=== PATIENT | female | born 1995 | race Caucasian/White ===

== ENCOUNTER 2022-10-15 17:32 | Emergency (ER) | payer SELFPAY ==
[~2022-10-15] VITALS: Ht 170.2 cm; Wt 127.3 kg
[~2022-10-15 17:32] MED LIST: ALBU8.5H4 IH; GUAI10SY2 PO; IBUP-1984 PO; PRED20TA PO
[2022-10-15 17:45] VITALS: BP 169/86
[2022-10-15] MEDS ORDERED: AMOX-102 PO (20:15)
== END 2022-10-15 20:25 | disposition home or self-care (01) ==
LOC: ER 17:32
DX: K08.89 Other specified disorders of teeth and supporting structures (principal); Z56.0 Unemployment, unspecified; Z79.2 Long term (current) use of antibiotics; Z79.899 Other long term (current) drug therapy
CPT/HCPCS: 99283

== ENCOUNTER 2023-07-25 22:07 | Emergency (ER) | payer SELFPAY ==
[~2023-07-25] VITALS: Ht 170.2 cm; Wt 118.2 kg
[2023-07-25 22:11] VITALS: TEMP 98
[2023-07-25 22:35] LABS: BASOPHILS # (AUTO) 0.1 X10'3 (0-0.2); BASOPHILS % (AUTO) 0.6 % (0-1); EOSINOPHILS # (AUTO) 0.4 X10'3 (0-0.9); EOSINOPHILS % (AUTO) 2.7 % (0-6); HEMATOCRIT 42.5 % (35.0-45.0); HEMOGLOBIN 14.3 g/dl (12.0-16.0); LYMPHOCYTES # (AUTO) 2.9 X10'3 (1.1-4.8); LYMPHOCYTES % (AUTO) 19.7 % (21-51); MEAN CORPUSCULAR HGB CONC 33.6 g/dL (33.0-36.5); MEAN CORPUSCULAR VOLUME 83.5 FL (78-98); MONOCYTES # (AUTO) 0.9 X10'3 (0-0.9); MONOCYTES % (AUTO) 6.3 % (2-12); NEUTROPHILS # (AUTO) 10.5 X10'3 (1.8-7.7); NEUTROPHILS % (AUTO) 70.7 % (42-75); PLATELET COUNT 243 X10'3 (140-440); RED BLOOD COUNT 5.09 X10'6 (4.20-5.60); RED CELL DISTRIBUTION WIDTH 13.2 % (11.5-14.5); WHITE BLOOD COUNT 14.9 X10'3 (4.5-11.0)
[2023-07-25 23:34] LABS: ALANINE AMINOTRANSFERASE 47 U/L (12-78); ALBUMIN/GLOBULIN RATIO 0.9 (1.1-1.5); ALKALINE PHOSPHATASE 77 IU/L (46-116); ANION GAP 11 (8-16); ASPARTATE AMINO TRANSFERASE 27 U/L (10-37); BILIRUBIN,TOTAL 0.3 MG/DL (0.1-1.0); BLOOD UREA NITROGEN 9 MG/DL (7-18); BUN/CREATININE RATIO 11.4 (10.0-20.0); CALCIUM 9.7 MG/DL (8.5-10.1); CHLORIDE 103 MMOL/L (99-107); CREATININE 0.79 MG/DL (0.40-0.90); GLUCOSE 125 MG/DL (70-104); POTASSIUM 3.7 MMOL/L (3.5-5.1); SODIUM 140 MMOL/L (135-145); TOTAL CARBON DIOXIDE 25.7 MMOL/L (24-32); TOTAL PROTEIN 8.4 G/DL (6.4-8.2); eCRCL 104 ML/MIN; eGFR 87 ML/MIN
[2023-07-25 23:40] LABS: PRO BRAIN NATRIURETIC PEPTIDE 60 PG/ML (0-125)
[2023-07-26] MEDS ORDERED: INHA1EAC9 INH (00:29)
[2023-07-26] MEDS ORDERED: PRED20TA PO (00:29)
[2023-07-26] MEDS ORDERED: ALBU18HF2 INH (00:29)
[2023-07-26] MEDS ORDERED: ipratropium/albuterol 3ml nebule NEB ONE (00:30)
[2023-07-26] MEDS ORDERED: predniSONE 20 mg tablet PO ONE (00:30)
[2023-07-26 01:06] VITALS: PULSE 84; RESP 22; O2SAT 94
[2023-07-26 01:12] VITALS: PULSE 94; RESP 20; O2SAT 100
--- NOTE | 2023-07-26 01:15 | NUR ---
PT UP TO BR WITH INCREASE SOB. SITTING UP AT SIDE OF BED AFTER 10MIN RESTING AND RR 36, 02 SAT 92-93% ON RA. HR 92. RT HERE GIVING TX.
[2023-07-26 01:42] VITALS: BP 166/87; PULSE 102; RESP 20; O2SAT 96
== END 2023-07-26 01:49 | disposition home or self-care (01) ==
LOC: ER 22:08
DX: J06.9 Acute upper respiratory infection, unspecified (principal); Z20.822 Contact with and (suspected) exposure to COVID-19; Z79.899 Other long term (current) drug therapy; Z79.2 Long term (current) use of antibiotics
CPT/HCPCS: 36415; 71045; 80053; 83880; 84484; 85025; 87502; 87503; 87811; 93005; 94640; 99285; J7512; 94760